=== PATIENT | male | born 1995 | race Caucasian/White ===

== ENCOUNTER 2022-06-23 07:31 | Emergency (ER) | payer BC ==
[2022-06-23] MEDS ORDERED: Amoxicillin 500 MG Cap PO ONE (07:46)
[2022-06-23] MEDS ORDERED: Hydrocortisone/Neomycin/Polymyxin B Otic Susp 10 ML Bottle EARRT SCH (09:00)
== END 2022-06-23 08:05 | disposition home or self-care (01) ==
LOC: JD.ED 07:31
DX: H60.501 Unspecified acute noninfective otitis externa, right ear (principal); H66.001 Acute suppurative otitis media without spontaneous rupture of ear drum, right ear
CPT/HCPCS: 99282; A9270